=== PATIENT | female | born 1940 | race Caucasian/White ===

== ENCOUNTER 2019-02-16 12:09 | Observation (INO) ==
[2019-02-16] MEDS ORDERED: IPRATROPIUM/ALBUTEROL SULFATE 3 ML NEB NEB ONE ×2 (12:25→14:05)
[2019-02-16 12:48] LABS: VENOUS PH 7.44 (7.32-7.42)
[2019-02-16 12:51] LABS: BASOPHILS # (AUTO) 0.03 10*3/UL; BASOPHILS % (AUTO) 0.3 % (0-1); EOSINOPHILS # (AUTO) 0.02 10*3/UL; EOSINOPHILS % (AUTO) 0.2 % (0-8); Hemoglobin [HGB] 13.1 g/dL (12.0-16.0); LYMPHOCYTES # (AUTO) 1.16 10*3/uL; MEAN CORPUSCULAR HGB CONC 33.6 g/dL (33-37); MEAN CORPUSCULAR VOLUME 89.9 FL (81-99); MONOCYTES # (AUTO) 1.31 10*3/UL (0.3-0.8); MONOCYTES % (AUTO) 11.8 % (5-15); NEUTROPHILS # (AUTO) 8.47 10*3/UL; NEUTROPHILS % (AUTO) 76.3 % (50-80); RED BLOOD COUNT 4.34 10^6/uL (4.20-5.40)
[2019-02-16 12:53] LABS: PLATELET MORPHOLOGY COMMENT NORMAL MORPHOLOGY (NORM); RBC MORPHOLOGY COMMENT NORMAL MORPHOLOGY (NORM); WBC MORPHOLOGY COMMENT NORMAL MORPHOLOGY (NORM)
[2019-02-16 13:03] LABS: BUN/CREATININE RATIO 19.28 (6-20); SERUM ALBUMIN 4.4 g/dL (3.5-4.8)
[2019-02-16] MEDS ORDERED: methylPREDNISolone Succ Inj 125 MG in Sodium Chloride 0.9% 50 ML IV ONE (13:09)
[2019-02-16] MEDS ORDERED: methylPREDNISolone 125 MG/2 ML VIAL IVP ONE (13:11)
[2019-02-16] MEDS ORDERED: cefTRIAXone Inj 1 GM in Sodium Chloride 0.9% 100 ML IV ONE (14:48)
[2019-02-16] MEDS ORDERED: ALBUTEROL SULFATE 2.5 MG/3 ML NEB PRN (15:54)
[2019-02-16] MEDS ORDERED: LIDOCAINE W/ SODIUM BICARB 0.5 ML SYR SUBD PRN (15:54)
[2019-02-16] MEDS ORDERED: FOSINOPRIL SODIUM 40 MG PO SCH (15:54)
[2019-02-16] MEDS ORDERED: Influenza 19-20 Vaccine (6mo+) 60 MCG/0.5 ML SYRINGE IM ONE (16:17)
[2019-02-16] MEDS: Sodium Chloride 0.9% 1,000 ML PRIMARY IV SCH (17:20)
[2019-02-16] MEDS: predniSONE Tab 20 MG TAB PO SCH (17:23)
[2019-02-16] MEDS: ASPIRIN EC 81 MG TABLET PO SCH (17:23)
[2019-02-16] MEDS: CARVEDILOL 12.5 MG TABLET PO SCH ×2 (18:07→20:10)
[2019-02-16] MEDS: IPRATROPIUM/ALBUTEROL SULFATE 3 ML NEB NEB SCH (19:53)
[2019-02-16] MEDS: ATORVASTATIN 40 MG TABLET PO SCH (20:10)
[2019-02-16] MEDS: traZODone Tab 50 MG TAB PO SCH (20:10)
[2019-02-17] MEDS: Sodium Chloride 0.9% 1,000 ML PRIMARY IV SCH ×4 (02:19→23:30)
[2019-02-17 05:00] LABS: BASOPHILS # (AUTO) 0.01 10*3/UL; BASOPHILS % (AUTO) 0.1 % (0-1); EOSINOPHILS # (AUTO) 0 10*3/UL; EOSINOPHILS % (AUTO) 0 % (0-8); Hematocrit [HCT] 34.6 % (37.0-47.0); Hemoglobin [HGB] 11.6 g/dL (12.0-16.0); LYMPHOCYTES # (AUTO) 0.63 10*3/uL; MEAN CORPUSCULAR HGB CONC 33.5 g/dL (33-37); MEAN CORPUSCULAR VOLUME 89.2 FL (81-99); MEAN PLATELET VOLUME 10.2 FL (7.4-12.2); MONOCYTES # (AUTO) 0.33 10*3/UL (0.3-0.8); MONOCYTES % (AUTO) 4.1 % (5-15); NEUTROPHILS # (AUTO) 6.98 10*3/UL; NEUTROPHILS % (AUTO) 87.5 % (50-80); RED BLOOD COUNT 3.88 10^6/uL (4.20-5.40)
[2019-02-17 05:04] LABS: PLATELET MORPHOLOGY COMMENT NORMAL MORPHOLOGY (NORM); RBC MORPHOLOGY COMMENT NORMAL MORPHOLOGY (NORM); WBC MORPHOLOGY COMMENT NORMAL MORPHOLOGY (NORM)
[2019-02-17] MEDS: IPRATROPIUM/ALBUTEROL SULFATE 3 ML NEB NEB SCH ×5 (07:21→19:23)
[2019-02-17] MEDS: LISINOPRIL 20 MG TABLET PO SCH (08:38)
[2019-02-17] MEDS: CARVEDILOL 12.5 MG TABLET PO SCH ×2 (08:38→21:17)
[2019-02-17] MEDS: ASPIRIN EC 81 MG TABLET PO SCH (08:39)
[2019-02-17] MEDS: predniSONE Tab 20 MG TAB PO SCH (08:39)
[2019-02-17] MEDS ORDERED: CALCIUM CARBONATE 500 MG (TUMS) CHEWABLE TABLET PO PRN (09:24)
[2019-02-17] MEDS ORDERED: cefTRIAXone Inj 2 GM in Sodium Chloride 0.9% 100 ML IV SCH (15:00)
[2019-02-17] MEDS: traZODone Tab 50 MG TAB PO SCH (21:17)
[2019-02-17] MEDS: ATORVASTATIN 40 MG TABLET PO SCH (21:18)
[2019-02-18] MEDS: IPRATROPIUM/ALBUTEROL SULFATE 3 ML NEB NEB SCH ×2 (07:15→11:57)
[2019-02-18] MEDS: Sodium Chloride 0.9% 1,000 ML PRIMARY IV SCH (07:50)
[2019-02-18] MEDS: LISINOPRIL 20 MG TABLET PO SCH (08:00)
[2019-02-18] MEDS: predniSONE Tab 20 MG TAB PO SCH (08:00)
[2019-02-18] MEDS: ASPIRIN EC 81 MG TABLET PO SCH (08:00)
[2019-02-18] MEDS: CARVEDILOL 12.5 MG TABLET PO SCH (08:00)
[2019-02-18 12:19] VITALS: BP 174/73; RESP 18; TEMP 97.8; O2SAT 93
[2019-02-18] MEDS ORDERED: AZITHROMYCIN 250 MG TABLET PO SCH (15:08)
== END 2019-02-18 14:29 | disposition home or self-care (01) ==
LOC: ER 12:09 → MED/SURG 12:09
PROVIDERS: ADMIT Internal Medicine; ATTEND Internal Medicine